=== PATIENT | male | born 1970 | race Caucasian/White ===

== ENCOUNTER 2020-10-16 20:03 | Emergency (ER) | payer MEDICAID ==
[~2020-10-16] VITALS: Ht 172.7 cm; Wt 30.0 kg
[2020-10-16] MEDS ORDERED: RISP3TAB35 PO (20:18)
[2020-10-16] MEDS ORDERED: MIRT30TA6 PO (20:18)
[2020-10-16] MEDS ORDERED: PRAZ2 PO (20:18)
[2020-10-16 20:20] VITALS: BP 129/78
[2020-10-16] MEDS ORDERED: IBUPROFEN 600 MG TABLET PO ONE (20:45)
== END 2020-10-16 22:19 | disposition home or self-care (01) ==
LOC: EMS 20:09
DX: S06.9X9A Unspecified intracranial injury with loss of consciousness of unspecified duration, initial encounter (principal); S16.1XXA Strain of muscle, fascia and tendon at neck level, initial encounter; F32.9 Major depressive disorder, single episode, unspecified; F20.9 Schizophrenia, unspecified; F41.9 Anxiety disorder, unspecified; Z87.891 Personal history of nicotine dependence; Z79.899 Other long term (current) drug therapy; Y04.0XXA Assault by unarmed brawl or fight, initial encounter; Y93.89 Activity, other specified; Y92.89 Other specified places as the place of occurrence of the external cause; Y99.8 Other external cause status
CPT/HCPCS: 70450; 72125; 99285